=== PATIENT | male | born 1950 | race Caucasian/White ===

== ENCOUNTER → 2016-12-30 10:54 | Day surgery (SDC) | payer MEDICARE ==
[~2016-12-30 10:54] MED LIST: Acetaminophen ADULT LIQ* 650 MG/20.3 ML UDC ONE; Atenolol TAB* 25 MG ONE; Buffered Lidocaine 1% SYRIN* 3 ML/SYR SYRINGE INTRADERM ONE; Lidocaine 2% PF* 5 ML VIAL ONE; Lidocaine 4% TOPICAL* 50 ML TOP.SOLN ONE; Methylene Blue 1% (ANTIDOTE)* 10 MG/ML 1 ML SDV VIAL IVPB ONE; Methylene Blue 1%* 10 ML VIAL ONE; Oxymetazoline 0.05% NASAL SPR* 15 ML BTL ONE; Propofol* 10 MG/ML 20 ML BTL IV PUSH ONE; Succinylcholine* 20 MG/ML 10 ML VIAL ONE; fentaNYL* 50 MCG/ML 2 ML VIAL (100 MCG VIAL) ONE; oxyCODONE ORAL.SOLN* 5 MG/5 ML UDC ONE; oxyCODONE/Acetamin 5/325 MG* TAB PO PRN
[2016-12-30] MEDS: fentaNYL* 50 MCG/ML 2 ML VIAL (100 MCG VIAL) IV PRN ×4 (15:59→17:03)
[2016-12-30 17:02] VITALS: BP 130/60
--- NOTE | 2016-12-31 15:53 | OP ---
DATE OF OPERATION: 12/30/16 - SDS DATE OF : 46 SURGEON: Hao Hendrix MD ANESTHESIOLOGIST: Srikanth Maria MD ANESTHESIA: General endotracheal anesthesia. PRE-OP DIAGNOSIS: Left vocal cord mass. POST-OP DIAGNOSIS: Left vocal cord mass, this was up in the subglottic region. OPERATIVE PROCEDURE: Microlaryngoscopy with biopsy and excision of what turned out to be a left subglottic mass under general endotracheal anesthesia. SPECIMEN: Biopsies of left laryngeal mass. COMPLICATIONS: None. DISPOSITION: Good. DESCRIPTION OF PROCEDURE: The patient was taken to the operating room and placed in the supine position on the operating table. General anesthesia was induced and he was orotracheally intubated with a laser safe endotracheal tube. He was turned and draped for the surgery and all of his drapes were wet for use of a CO2 laser. A tooth guard was placed on his upper teeth and a laryngoscope was inserted and suspended from the suspension system. Microscope was brought in. He had a polypoid mass coming off of left subglottic region just below the level of the vocal cords. Multiple biopsies were taken and then the base of this was ablated using the OmniGuide CO2 laser to diffusely ablate the area, where this was attached. I did not go too deep because I do not know whether this is benign or malignant, but there was no evidence of the mass at the end of this procedure. The laser safe tube was used. I did use cottonoids impregnated with oxymetazoline and 4% lidocaine including one just inferior to this while I was lasering. The laryngoscope and tooth guard were removed. The patient tolerated the procedure well, no complications, extubated uneventfully and transferred to recovery room in stable condition. [id number]/[facility] #: [id number] MTDD
== END | disposition home or self-care (01) ==
LOC: OR 10:54
PROVIDERS: ATTEND Otolaryngology
DX: D14.1 Benign neoplasm of larynx (principal); E11.8 Type 2 diabetes mellitus with unspecified complications; Z79.4 Long term (current) use of insulin; I10 Essential (primary) hypertension; E78.5 Hyperlipidemia, unspecified; Z85.46 Personal history of malignant neoplasm of prostate
CPT/HCPCS: 88305; 88341; 88342; A9270-GY; J0330; J2704; J3010

== ENCOUNTER 2017-05-10 06:50 | Day surgery (SDC) | payer MEDICARE, OTHER ==
[~2017-05-10 06:50] MED LIST changes: -Acetaminophen ADULT LIQ* 650 MG/20.3 ML UDC ONE; -Atenolol TAB* 25 MG ONE; +Buffered Lidocaine 0.9% SYRIN* 5 ML/SYR SYRINGE INTRADERM ONE; +Buffered Lidocaine 0.9% SYRIN* 5 ML/SYR SYRINGE ONE; -Buffered Lidocaine 1% SYRIN* 3 ML/SYR SYRINGE INTRADERM ONE; -Lidocaine 2% PF* 5 ML VIAL ONE; -Lidocaine 4% TOPICAL* 50 ML TOP.SOLN ONE; -Methylene Blue 1% (ANTIDOTE)* 10 MG/ML 1 ML SDV VIAL IVPB ONE; -Methylene Blue 1%* 10 ML VIAL ONE; -Oxymetazoline 0.05% NASAL SPR* 15 ML BTL ONE; -Propofol* 10 MG/ML 20 ML BTL IV PUSH ONE; -Succinylcholine* 20 MG/ML 10 ML VIAL ONE; -fentaNYL* 50 MCG/ML 2 ML VIAL (100 MCG VIAL) ONE; -oxyCODONE ORAL.SOLN* 5 MG/5 ML UDC ONE; -oxyCODONE/Acetamin 5/325 MG* TAB PO PRN
[2017-05-10] MEDS ORDERED: Atenolol TAB* 25 MG ONE (07:27)
[2017-05-10] MEDS ORDERED: Midazolam* 1 MG/ML 2 ML VIAL (2 MG) ONE (08:09)
[2017-05-10] MEDS ORDERED: fentaNYL* 50 MCG/ML 2 ML VIAL (100 MCG VIAL) ONE ×2 (08:09→10:27)
[2017-05-10] MEDS ORDERED: Lidocaine 4% TOPICAL* 50 ML TOP.SOLN ONE (09:42)
[2017-05-10] MEDS ORDERED: EPINEPHrine AMP 1 MG/ML ONE (09:42)
[2017-05-10] MEDS ORDERED: Oxymetazoline 0.05% NASAL SPR* 15 ML BTL ONE (09:42)
[2017-05-10] MEDS ORDERED: Methylene Blue 1% (ANTIDOTE)* 10 MG/ML 1 ML SDV VIAL IVPB ONE (09:42)
[2017-05-10] MEDS ORDERED: Phenylephrine IV* 40 MCG/ML 10 ML SYRINGE ONE (10:21)
[2017-05-10] MEDS ORDERED: Propofol* 10 MG/ML 20 ML BTL IV PUSH ONE (10:25)
[2017-05-10] MEDS ORDERED: Lidocaine 2% PF * 5 ML VIAL ONE (10:25)
[2017-05-10] MEDS ORDERED: Ondansetron INJ* 2 MG/ML VIAL ONE (10:28)
[2017-05-10] MEDS ORDERED: Acetaminophen TAB* 325 MG PO PRN (11:16)
[2017-05-10] MEDS ORDERED: HYDROmorphone* 1 MG/ML 1 ML SYR IV PRN (11:16)
[2017-05-10] MEDS ORDERED: HYDROcodone/ACET. 7.5/325 LIQ* 15 ML UDC ONE (11:38)
[2017-05-10 14:46] VITALS: BP 118/80
--- NOTE | 2017-05-10 17:19 | CONS ---
CC: Dr. Gomez * [facility] MEDICINE CONSULTATION REPORT: DATE OF CONSULTATION: 05/10/17 PRIMARY CARE PHYSICIAN: Dr. Gomez. ATTENDING PHYSICIAN: Oh Duran MD (dictation provided by Mikayla Ruvalcaba NP) REASON FOR CONSULTATION: Atrial fibrillation noted after endoscopic ENT procedure with Dr. Hendrix for removal of laryngeal mass. HISTORY OF PRESENT ILLNESS: Mr. Turk is a 66-year-old male with a past medical history of hypertension and insulin-dependent diabetes who has been noted to have a mass on his left vocal cord with suspicion for neoplasm. He had a history of smoking, but quit 25 years ago. He was seen by Dr. Hendrix who excised the mass. The patient tolerated the procedure well. Dr. Hendrix felt that it was a small benign mass. However, in the postoperative period while in the PACU, the patient was noted to be in atrial fibrillation. His heart rate has been controlled at approximately 70s to 80s throughout that time. His blood pressure is stable running systolically 100s to 120s. He has been ambulating in the PACU without any symptoms. He denies any palpitations. He states that at home he has a blood pressure cuff and that sometimes when he takes it, the machine will read that his heart rhythm is irregular. He believes his last EKG was with Dr. Gomez in the office prior to his last surgery in November, but nothing was noted to him about any arrhythmia or abnormal finding. He states that prior to coming into surgery, he was feeling well. He has had no chest pain, no shortness of breath. No nausea, vomiting, diarrhea, abdominal pain. He had no fever. PAST MEDICAL HISTORY: 1. Hypertension. 2. Insulin-dependent diabetes. 3. History of stress test x2, which he reports were negative. 4. Arthritis. 5. Laryngeal mass, status post excision. MEDICATIONS: 1. Metformin 500 mg p.o. b.i.d. 2. Glipizide 5 mg p.o. daily. 3. Valsartan 320 mg p.o. daily. 4. Lantus 34 units subcutaneously at bedtime and 44 units in the a.m. 5. Hydrochlorothiazide 25 mg p.o. daily. 6. Atorvastatin 40 mg p.o. daily. 7. Atenolol 50 mg p.o. daily. 8. Tylenol p.r.n. 9. The patient will also have pain medicines prescribed by Dr. Hendrix. ALLERGIES: No known drug allergies. FAMILY HISTORY: The patient reports his mother related to cirrhosis at a young age and his father related to heart disease. SOCIAL HISTORY: The patient is a former smoker who quit 25 to 30 years ago. He drinks alcohol very occasionally. He lives with his who is his healthcare proxy. REVIEW OF SYSTEMS: A 14-point review of systems was completed with Mr. Turk and all those not mentioned above were negative. PHYSICAL EXAMINATION: Vital Signs: Temperature 97.2, heart rate 73, respiratory rate 12, O2 saturation 97% on room air, blood pressure 121/78. General: Mr. Turk is sitting up in a chair. He is in no acute distress. Neuro: He is alert, he is oriented x3. He moves all extremities equally. There is no facial asymmetry or focal weakness. Extraocular movements are intact. Lungs are clear to auscultation bilaterally with no accessory muscle use. Good aeration. Heart: S1, S2. No murmur. No rub and irregular. Abdomen: Soft and nontender with bowel sounds positive x4. Extremities: No edema. Skin: Intact. DIAGNOSTIC STUDIES/LAB DATA: The patient's last CBC was on 04/25/17, shows WBC 8.4, hemoglobin 13.9, hematocrit 40, and platelet count 182. Sodium is 139, potassium 3.6, chloride 101, serum bicarbonate 31, BUN 13, creatinine 0.90, glucose 107. His last hemoglobin A1c was 7.5. Last TSH was from 2010 at 1.95. ASSESSMENT: Mr. Turk is a 66-year-old male presented today for excision of a laryngeal mass with Dr. Hendrix and in the postoperative period, seemed to be having AFib that is rate controlled. He also has history of hypertension and diabetes. RECOMMENDATIONS: Mr. Turk has paroxysmal atrial fibrillation. He notes at home that he has had episodes while using his blood pressure cuff, where his heart rhythm was irregular, so it is unclear exactly how long this has been going on as the patient is again asymptomatic. He does have a CHADS-VASc2 score of 3 based on his hypertension, diabetes, and age; therefore, I would recommend that he start anticoagulation and I plan to start him on Xarelto this evening. I have reviewed this with Dr. Hendrix who is not concerned about any risks for bleeding based on the very minor procedure that he performed today. The patient is also recommended to have a transthoracic echocardiogram outpatient. The patient will be following with Dr. Gomez early next week and this can be arranged through her office. Otherwise, the patient should continue on his medications for his hypertension and diabetes and continue his followups with his multiple physicians per routine. TIME SPENT: Approximately 45 minutes were spent in the consultation of the patient, more than half the time spent with the patient at the bedside reviewing the events leading up to this hospitalization, performing the physical examination, and reviewing the plan of care. MIKAYLA RUVALCABA NP [id number]/[facility] #: [id number] RODRIGUEZ
--- NOTE | 2017-05-10 21:49 | OP ---
DATE OF OPERATION: 05/10/17 - [facility] DATE OF : 46 SURGEON: Hao Hendrix MD ANESTHESIOLOGIST: Dariela Fiore MD ANESTHESIA: General endotracheal. PRE-OP DIAGNOSIS: Benign subglottic tumor. POST-OP DIAGNOSIS: Benign subglottic tumor. OPERATIVE PROCEDURE: Microlaryngoscopy with excision of subglottic tumor. COMPLICATIONS: None. DISPOSITION: Good. SPECIMEN: Subglottic tumor. BLOOD LOSS: Minimum. DESCRIPTION OF PROCEDURE: The patient was taken to the operating room, placed on the supine position on the operating room table, general anesthesia was induced, and he was orotracheally intubated with a laser safe tube. He was turned and draped for the surgery and a laryngoscope was inserted. He has a mass in the subglottis at the anterior commissure. I used some graspers to basically rip it off from its base, which was centered on the left, may be attached to anterior vocal cord or just along the inferior edge of the vocal cord or just at the superior extent of the subglottis just lateral to the anterior commissure. I then used the KTP laser to ablate the base and tried to remove the stalk of the tumor from the underlying tissue. Topical anesthetic with 4% lidocaine and oxymetazoline was used during the surgery and laser safe technique was used. The patient tolerated the procedure well, no complications , transferred to the recovery room in stable condition. [id number]/[facility] #: [id number] MTDD
== END 2017-05-10 14:46 | disposition home or self-care (01) ==
LOC: OR 06:50
PROVIDERS: ATTEND Otolaryngology
DX: D14.1 Benign neoplasm of larynx (principal); I10 Essential (primary) hypertension; E11.9 Type 2 diabetes mellitus without complications; Z79.4 Long term (current) use of insulin; M19.90 Unspecified osteoarthritis, unspecified site; Z87.891 Personal history of nicotine dependence; Z79.84 Long term (current) use of oral hypoglycemic drugs; J45.909 Unspecified asthma, uncomplicated
CPT/HCPCS: 88305; 88341; 88342; 93005; A9270-GY; J0171; J2250; J2405; J2704; J3010

== ENCOUNTER 2017-06-30 07:37 | Inpatient (IN) | payer MEDICARE, OTHER ==
[~2017-06-30 07:37] MED LIST changes: -Buffered Lidocaine 0.9% SYRIN* 5 ML/SYR SYRINGE ONE
[2017-06-30] MEDS ORDERED: Buffered Lidocaine 0.9% SYRIN* 5 ML/SYR SYRINGE ONE (07:46)
[2017-06-30] MEDS ORDERED: EPINEPHrine AMP 1 MG/ML ONE (10:37)
[2017-06-30] MEDS ORDERED: Lidocaine 4% TOPICAL* 50 ML TOP.SOLN ONE (10:38)
[2017-06-30] MEDS ORDERED: Oxymetazoline 0.05% NASAL SPR* 15 ML BTL ONE (10:38)
[2017-06-30] MEDS ORDERED: Midazolam* 1 MG/ML 5 ML VIAL (5 MG) ONE (10:49)
[2017-06-30] MEDS ORDERED: fentaNYL* 50 MCG/ML 2 ML VIAL (100 MCG VIAL) ONE ×4 (10:49→14:23)
[2017-06-30] MEDS ORDERED: Propofol* 10 MG/ML 20 ML BTL IV PUSH ONE (10:49)
[2017-06-30] MEDS ORDERED: Atracurium* 10 MG/ML 10 ML VIAL ONE (11:10)
[2017-06-30] MEDS ORDERED: Dexamethasone IV* 4 MG/ML 1 ML (4 MG) ONE (11:11)
[2017-06-30] MEDS ORDERED: Succinylcholine* 20 MG/ML 10 ML VIAL ONE (11:13)
[2017-06-30] MEDS ORDERED: Methylene Blue 0.5 %* 50 MG/10 ML AMP IV ONE (11:30)
[2017-06-30] MEDS ORDERED: Ondansetron INJ* 2 MG/ML VIAL IV PRN (11:36)
[2017-06-30] MEDS ORDERED: DiMENhydriNATE IV* 50 MG/ML VIAL IV PUSH PRN (11:36)
[2017-06-30] MEDS ORDERED: Glycopyrrolate IV* 0.2 MG/ML 1 ML VIAL ONE (11:56)
[2017-06-30] MEDS ORDERED: Neostigmine Methylsulfate* 2 MG/2 ML SYRINGE ONE (11:56)
[2017-06-30] MEDS ORDERED: Ondansetron INJ* 2 MG/ML VIAL ONE (11:58)
[2017-06-30] MEDS ORDERED: HYDROmorphone INJ* 1 MG/ML CARPUJECT SYRINGE ONE (12:29)
[2017-06-30] MEDS: fentaNYL* 50 MCG/ML 2 ML VIAL (100 MCG VIAL) IV PRN ×4 (12:30→12:53)
[2017-06-30] MEDS: HYDROmorphone INJ* 1 MG/ML CARPUJECT SYRINGE IV PRN ×5 (12:32→13:02)
[2017-06-30] MEDS ORDERED: HYDROcodone/ACET. 7.5/325 LIQ* 15 ML UDC ONE (12:56)
[2017-06-30] MEDS ORDERED: Acetaminophen TAB* 325 MG PO PRN (14:37)
[2017-06-30] MEDS ORDERED: HYDROcodone/ACETAMIN 5-325 MG* 1 TAB PO PRN (14:37)
[2017-06-30] MEDS ORDERED: oxyCODONE/Acetamin 5/325 MG* TAB PO PRN (14:45)
[2017-06-30] MEDS ORDERED: D5NS 0.9% 1000 ML BAG* 1,000 ML IV SCH (15:00)
[2017-06-30] MEDS ORDERED: fentaNYL* 50 MCG/ML 2 ML VIAL (100 MCG VIAL) IV SLOW PU ONE (15:00)
[2017-06-30] MEDS: Valsartan TAB* 160 MG PO SCH (15:55)
[2017-06-30] MEDS: metFORMIN* 500 MG TAB PO SCH (17:43)
[2017-06-30] MEDS: HYDROcodone/ACETAMIN 5-325 MG* 1 TAB PO PRN (17:43)
[2017-06-30] MEDS: Insulin LISPRO* 1 UNITS UNIT SUBCUT SCH ×2 (18:04→21:40)
--- NOTE | 2017-06-30 20:50 | CONS ---
CRITICAL CARE CONSULT REPORT: DATE OF CONSULT: 06/30/17 REASON FOR CONSULT: Postoperative care. 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 Other significant past history includes hypertension and insulin-dependent diabetes. The patient was alert, oriented, and in no distress on admission to the ICU. OUTPATIENT MEDICATIONS: 1. Metformin 500 mg twice daily. 2. Glipizide 5 mg daily. 3. Valsartan 320 mg daily. 4. Lantus insulin 34 units subcu at bedtime and 44 units subcu in the morning. 5. Hydrochlorothiazide 25 mg daily. 6. Atorvastatin 40 mg daily. 7. Atenolol 50 mg daily. REVIEW OF SYSTEMS: Noncontributory. PHYSICAL EXAM: General: The patient is alert, oriented, and breathing comfortable. Vital Signs: Temp 96.8, blood pressure 140/60, heart rate 91 and regular, respirations 22 and nonlabored, O2 sat 97% on 2 L nasal cannula. HEENT : Oropharynx clear. No audible stridor. No swelling in the neck region. Lungs : Clear to auscultation. Cardiac Exam: Regular rhythm. No murmurs, rubs, or gallops. Abdomen: Nondistended. Extremities: Warm, not cyanotic, or edematous. LABORATORY DATA: Only labs available at this time are point of care glucose, which was 103. IMPRESSION: The patient is stable postoperatively. No signs of upper airway obstruction. MANAGEMENT PLAN: Sliding scale insulin to cover for glycemia control over the next 24 hours. Monitor the patient for signs of upper airway obstruction (i.e., stridor). CRITICAL CARE TIME: Forty-five minutes. [id number]/[facility] #: [id number] MTDD
[2017-06-30] MEDS ORDERED: Insulin GLARGINE(*) 1 UNITS UNIT SUBCUT SCH (21:00)
[2017-06-30] MEDS ORDERED: Atorvastatin* 40 MG TAB PO SCH (21:00)
--- NOTE | 2017-07-01 01:53 | OP ---
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 POST-OP DIAGNOSIS: Subglottic tumor, which is benign. OPERATIVE PROCEDURE: Microlaryngoscope with resection of subglottic tumor with a KTP laser. COMPLICATIONS: None. CONDITION: Good. SPECIMENS: Subglottic tumor. DESCRIPTION OF PROCEDURE: The patient was taken to the operating room, placed in a supine position on the operating table, and orotracheally intubated with a laser safe tube and during the procedure laser safety was ensured with a little oxygen irrigation if needed, wet towels around his face and wet eye pads. He was turned and draped for the surgery. The laryngoscope was inserted and suspended from the suspension system and the microscope was brought in, had a big exophytic mass in the subglottis attached to the anterior commissure and on to the left vocal cord. I used the cup biopsies to debride this and then took the KTP laser at a power setting of 8 and just ablated anywhere that the tumor appeared to be attached trying to get deep to the tumor bed where I palpated soft tissue. Very difficulty exposure in the anterior commissure inferior to the vocal cords in the ventricle deep to the false vocal cord. There were no complications during this surgery. Power setting of 8 was used. Afrin and 4% lidocaine was used for hemostasis and to anesthetize this area. At the end of the case, I inserted a 6 endotracheal tube through the laryngoscope and then removed the laryngoscope and then once we got good CO2 return, we removed the laser safe tube. The patient tolerated this well, no complications, transferred to the recovery room in stable condition. [id number]/[facility] #: [id number] MTDD
[2017-07-01] MEDS: HYDROcodone/ACETAMIN 5-325 MG* 1 TAB PO PRN (04:55)
[2017-07-01] MEDS ORDERED: glipiZIDE TAB* 5 MG PO SCH (08:00)
[2017-07-01] MEDS ORDERED: Influenza VAC *QUAD* 2017-18* 0.5 ML SYRINGE IM ONE (09:00)
[2017-07-01] MEDS ORDERED: Insulin GLARGINE(*) 1 UNITS UNIT SUBCUT SCH (09:00)
[2017-07-01] MEDS ORDERED: Hydrochlorothiazide TAB* 25 MG PO SCH (09:00)
[2017-07-01] MEDS ORDERED: Metoprolol Succinate XL TAB* 50 MG PO SCH (09:00)
[2017-07-01] MEDS: Insulin LISPRO* 1 UNITS UNIT SUBCUT SCH (09:22)
[2017-07-01] MEDS: Valsartan TAB* 160 MG PO SCH (09:34)
[2017-07-01] MEDS: metFORMIN* 500 MG TAB PO SCH (09:34)
[2017-07-01 13:40] VITALS: BP 116/79
--- NOTE | 2017-07-01 13:58 | DS ---
DISCHARGE SUMMARY: DATE OF ADMISSION: 06/30/17 DATE OF DISCHARGE: 07/01/17 HISTORY: This patient is a 66-year-old white male with a history of a benign laryngeal tumor, who u nderwent laser ablation yesterday and postoperatively was sent to the intensive care unit for monito ring. The patient did well following the procedure and showed no evidence of laryngeal obstruction throughout the evening and up until discharge. Other medical problems included atrial fibrillation, hypertension, and insulin-dependent diabetes, and none of these conditions created problems during the brief hospitalization. DISCHARGE PLAN: The patient will return home and will resume anticoagulation with Xarelto for the a trial fibrillation in 2 days. He will also call Dr. Hao Hendrix's office (ENT) for a followup vi sit. OUTPATIENT MEDICATIONS: 1. Lipitor 40 mg daily. 2. Lantus insulin 44 units in the morning and 34 units subcu at bedtime. 3. Metoprolol 50 mg daily. 4. Valsartan 150 mg daily. 5. Glipizide 5 mg daily. 6. Metformin 500 mg twice daily. [id number]/[facility] #: [id number]
[2017-07-03] MEDS ORDERED: Rivaroxaban TAB(*) 20 MG TAB PO SCH (09:00)
== END 2017-07-01 13:00 | disposition home or self-care (01) | DRG 134 ==
LOC: OR 07:37 → ICU 13:50
PROVIDERS: ADMIT Otolaryngology; ATTEND Otolaryngology
PROC: 0C5S8ZZ Destruction of Larynx, Via Natural or Artificial Opening Endoscopic (ICD-10-PCS; principal; 2017-06-30 10:15)
DX: D14.1 Benign neoplasm of larynx (principal); I48.91 Unspecified atrial fibrillation; I10 Essential (primary) hypertension; E11.9 Type 2 diabetes mellitus without complications; E78.00 Pure hypercholesterolemia, unspecified; E66.9 Obesity, unspecified; M19.90 Unspecified osteoarthritis, unspecified site; J45.909 Unspecified asthma, uncomplicated; Z87.891 Personal history of nicotine dependence; Z79.01 Long term (current) use of anticoagulants; Z79.4 Long term (current) use of insulin; Z68.28 Body mass index [BMI] 28.0-28.9, adult
CPT/HCPCS: 87641; 94760; A9270-GY; J0171; J0330; J1100; J1170; J2250; J2405; J2704; J3010